=== PATIENT | female | born 1945 | race Two or more races ===

== ENCOUNTER 2024-11-15 09:05 | Inpatient (IN) | payer MEDICARE, OTHER ==
[2024-11-15] MEDS ORDERED: FENTANYL PF 100MCG/2ML AMPUL ONE (11:53)
[2024-11-15] MEDS ORDERED: MIDAZOLAM HCL 2 MG/2ML VIAL ONE (11:53)
[2024-11-15] MEDS ORDERED: SUCCINYLCHOLINE CHLORIDE 20 MG/ML VIAL ONE (11:54)
[2024-11-15] MEDS ORDERED: dexaMETHasone SOD PHOSPHATE 1 ML ONE (11:54)
[2024-11-15] MEDS ORDERED: VANCOMYCIN 1 GM VIAL ONE (11:59)
[2024-11-15] MEDS ORDERED: LIDOCAINE 2%-EPI 1:100,000 30 ML VIAL ONE (11:59)
[2024-11-15] MEDS ORDERED: HYDROMORPHONE 1 MG/1 ML DISP.SYRIN IV PRN (15:00)
[2024-11-15 15:30] VITALS: BP 117/65; TEMP 97.9; O2SAT 95
[2024-11-15] MEDS ORDERED: CLON0.5T4 PO (15:58)
[2024-11-15] MEDS ORDERED: METF-440 PO (15:58)
[2024-11-15] MEDS ORDERED: FOST100T PO (15:58)
[2024-11-15] MEDS ORDERED: METO50CA PO (15:58)
[2024-11-15] MEDS ORDERED: CHOL100062 PO (15:58)
[2024-11-15] MEDS ORDERED: TRAM50TA2 PO (15:58)
[2024-11-15] MEDS ORDERED: AMYL1CAP58 PO (15:58)
[2024-11-15] MEDS ORDERED: OMEP40CA21 PO (15:58)
[2024-11-15] MEDS ORDERED: AMLO-212 PO (15:58)
[2024-11-15] MEDS ORDERED: LEVO88TA5 PO (15:58)
[2024-11-15] MEDS ORDERED: INSU100I26 SQ (15:58)
[2024-11-15] MEDS ORDERED: EMPA25TA PO (15:58)
[2024-11-15] MEDS ORDERED: LEMB5TAB PO (15:58)
[2024-11-15] MEDS ORDERED: AMOX1TAB16 PO (15:58)
[2024-11-15] MEDS ORDERED: OLME40TA18 PO (15:58)
[2024-11-15] MEDS ORDERED: ACETAMINOPHEN 325 MG TABLET PO PRN (16:00)
[2024-11-15] MEDS ORDERED: ONDANSETRON HCL/PF 4 MG/2 ML VIAL IVP PRN (16:00)
[2024-11-15] MEDS: HYDROMORPHONE 1 MG/1 ML DISP.SYRIN IV PRN (18:24)
[2024-11-15 20:00] VITALS: BP 120/76; TEMP 97.5; O2SAT 98
[2024-11-15] MEDS: IV NS 0.9% 1,000 ML IV PRN (23:01)
[2024-11-16] MEDS: VANCOMYCIN 1 GM in IV D5W 250ml IV SCH (01:05)
[2024-11-16 08:37] VITALS: BP 118/82; TEMP 97.9; O2SAT 98
== END 2024-11-16 16:46 | disposition home or self-care (01) | DRG 497 ==
LOC: DS 09:05 → MED 15:22
PROC: 0NUV07Z Supplement Left Mandible with Autologous Tissue Substitute, Open Approach (ICD-10-PCS; principal; 2024-11-15)
PROC: 0N5V0ZZ Destruction of Left Mandible, Open Approach (ICD-10-PCS; 2024-11-15)
PROC: 0NHV04Z Insertion of Internal Fixation Device into Left Mandible, Open Approach (ICD-10-PCS; 2024-11-15)
DX: S02.69XK Fracture of mandible of other specified site, subsequent encounter for fracture with nonunion (principal); M27.2 Inflammatory conditions of jaws; E03.9 Hypothyroidism, unspecified; E11.9 Type 2 diabetes mellitus without complications; F41.9 Anxiety disorder, unspecified; I10 Essential (primary) hypertension; K21.9 Gastro-esophageal reflux disease without esophagitis; M27.49 Other cysts of jaw; I25.9 Chronic ischemic heart disease, unspecified; Z79.84 Long term (current) use of oral hypoglycemic drugs; Z79.4 Long term (current) use of insulin
CPT/HCPCS: 82962-TC; 88305-TC; 88311-TC; A4223; A4338; C1713; G0378; J0330; J1100; J1171; J2250; J2405; J2704; J3010; J3370; J3490; J7030; J7060

== ENCOUNTER 2025-06-27 07:21 | Inpatient (IN) | payer MEDICARE, OTHER ==
[~2025-06-27] VITALS: Ht 152.4 cm; Wt 78.2 kg
[~2025-06-27 07:21] MED LIST: AMLO-212 PO; AMOX1TAB16 PO; AMYL1CAP58 PO; CHOL100062 PO; CLON0.5T4 PO; EMPA25TA PO; FOST100T PO; INSU100I26 SQ; LEMB5TAB PO; LEVO88TA5 PO; METF-440 PO; METO50CA PO; OLME40TA18 PO; OMEP40CA21 PO; TRAM50TA2 PO
[2025-06-27] MEDS ORDERED: LIDOCAINE 2%-EPI 1:100,000 30 ML VIAL ONE (09:14)
[2025-06-27] MEDS ORDERED: VANCOMYCIN 1 GM VIAL ONE (09:14)
[2025-06-27] MEDS ORDERED: dexaMETHasone SOD PHOSPHATE 1 ML ONE (09:14)
[2025-06-27] MEDS ORDERED: OXYMETAZOLINE HCL NASAL SPRAY 30 ML BOTTLE NS ONE (09:14)
[2025-06-27] MEDS ORDERED: HYDROMORPHONE 1 MG/1 ML DISP.SYRIN IV PRN (11:30)
[2025-06-27] MEDS ORDERED: ACETAMINOPHEN 325 MG TABLET PO PRN ×2 (11:30→14:00)
[2025-06-27] MEDS ORDERED: ONDANSETRON HCL/PF 4 MG/2 ML VIAL IV PRN (11:30)
[2025-06-27] MEDS ORDERED: ANESTHESIA TRAY IN PYXIS 1 EA TRAY MC ONE (11:55)
[2025-06-27] MEDS ORDERED: TIMO5DRO31 EACHEYE (12:00)
[2025-06-27] MEDS ORDERED: LATA7.5D EACHEYE (12:00)
[2025-06-27] MEDS ORDERED: ICOS1CAP PO (12:00)
[2025-06-27] MEDS ORDERED: LEMB5TAB PO (12:00)
[2025-06-27] MEDS ORDERED: NITR0.4T48 SL (12:00)
[2025-06-27] MEDS ORDERED: ATOR20TA PO (12:00)
[2025-06-27] MEDS: IV NS 0.9% 1,000 ML IV PRN (13:02)
[2025-06-27] MEDS ORDERED: Z GUARD REMEDY 4 OZ OINT TP PRN (14:00)
[2025-06-27] MEDS ORDERED: DEXTROSE 50%-WATER 50 ML DISP.SYRIN IV PRN (14:00)
[2025-06-27] MEDS ORDERED: *INSULIN REGULAR(HUMULIN R)HUM 100 UNIT/ML VIAL SQ PRN (14:00)
[2025-06-27] MEDS ORDERED: MAGNESIUM HYDROXIDE 30 ML UDC PO PRN (14:00)
[2025-06-27] MEDS ORDERED: ONDANSETRON HCL/PF 4 MG/2 ML VIAL IVP PRN (14:00)
[2025-06-27] MEDS ORDERED: MAG HYDROX/AL HYDROX/SIMETH 30 ML UDC PO PRN (14:00)
[2025-06-27] MEDS: INSULIN REGULAR, HUMAN 100 UNIT/ML 3 ML VIAL SQ PRN (17:54)
[2025-06-27] MEDS: BLOOD SUGAR DIAGNOSTIC 1 EACH STRIP VI SCH (17:54)
[2025-06-27] MEDS: VANCOMYCIN 1 GM in IV D5W 250ml IV SCH (21:03)
[2025-06-27 21:04] VITALS: BP 100/63; TEMP 98.1; O2SAT 94
[2025-06-27] MEDS: ZOLPIDEM TARTRATE 5 MG TABLET PO PRN (21:23)
[2025-06-28 07:21] LABS: CALCIUM, SERUM 8.5 mg/dL (8.5-10.1); CREATININE 1.3 mg/dL (0.6-1.3); SODIUM SERUM 146.0 mmol/L (136-145); UREA NITROGEN, BLOOD 22.0 mg/dL (7-18)
[2025-06-28] MEDS: PANTOPRAZOLE 40 MG TABLET.DR PO SCH (07:40)
[2025-06-28] MEDS: LEVOTHYROXINE SODIUM 88 MCG TABLET PO SCH (07:41)
[2025-06-28 08:00] VITALS: BP 121/58; TEMP 97.5; O2SAT 97
[2025-06-28] MEDS: METFORMIN 500 MG TABLET PO SCH (08:16)
[2025-06-28] MEDS: METOPROLOL SUCCINATE 50 MG TAB.SR.24H PO SCH (08:16)
[2025-06-28 08:19] VITALS: BP 121/58
[2025-06-28] MEDS: LOSARTAN POTASSIUM 50 MG TABLET PO SCH (08:19)
[2025-06-28] MEDS ORDERED: Medication Not On Formulary EA (Icosapent Ethyl (Vascepa) 1 GM) PO SCH (09:00)
== END 2025-06-28 14:30 | disposition home or self-care (01) | DRG 908 ==
LOC: DS 07:21 → MED 12:16
PROVIDERS: ADMIT Internal Medicine; ATTEND Internal Medicine
PROC: 0NST04Z Reposition Right Mandible with Internal Fixation Device, Open Approach (ICD-10-PCS; 2025-06-27)
PROC: 0N5T0ZZ Destruction of Right Mandible, Open Approach (ICD-10-PCS; 2025-06-27)
PROC: 0NPW07Z Removal of Autologous Tissue Substitute from Facial Bone, Open Approach (ICD-10-PCS; 2025-06-27)
PROC: 0NPW04Z Removal of Internal Fixation Device from Facial Bone, Open Approach (ICD-10-PCS; 2025-06-27)
PROC: 0NUV07Z Supplement Left Mandible with Autologous Tissue Substitute, Open Approach (ICD-10-PCS; 2025-06-27)
PROC: 0NSV0ZZ Reposition Left Mandible, Open Approach (ICD-10-PCS; 2025-06-27)
PROC: 0N5V0ZZ Destruction of Left Mandible, Open Approach (ICD-10-PCS; principal; 2025-06-27 10:05)
DX: T86.831 Bone graft failure (principal); S02.69XK Fracture of mandible of other specified site, subsequent encounter for fracture with nonunion; T84.69XA Infection and inflammatory reaction due to internal fixation device of other site, initial encounter; M27.2 Inflammatory conditions of jaws; E03.9 Hypothyroidism, unspecified; I10 Essential (primary) hypertension; E78.5 Hyperlipidemia, unspecified; Y83.2 Surgical operation with anastomosis, bypass or graft as the cause of abnormal reaction of the patient, or of later complication, without mention of misadventure at the time of the procedure; X58.XXXD Exposure to other specified factors, subsequent encounter; Y92.009 Unspecified place in unspecified non-institutional (private) residence as the place of occurrence of the external cause; E11.69 Type 2 diabetes mellitus with other specified complication
CPT/HCPCS: 36415; 71045-TC; 80048-TC; 82962-TC; A4217; A4338; C1713; G0378; J0461; J0690; J1100; J1815; J2704; J3373; J3490; J7030; J7050; J7060